=== PATIENT | male | born 1960 | race Caucasian/White ===

== ENCOUNTER → 2021-06-07 | Outpatient (CLI) | payer OTHER, MEDICARE ==
[~2021-06-07] MED LIST: DULO60CA58 PO; FLAX100032 PO; HYDR8TAB PO; LEVO100T4 PO; LEVO500T69 PO; LUBI24CA PO; MODA200T34 PO; NAPR-689 PO; OMEG-105 PO; OXYM40TA12 PO; PRED10TA PO; PREG100C22 PO; PROP20TA5 PO; SENN1TAB76 PO; TIAG4TAB PO; TIZA4CAP6 PO; VITA-235 PO
== END ==
LOC: WOUNDCARE 08:50
PROVIDERS: ATTEND Surgery
DX: S81.811A Laceration without foreign body, right lower leg, initial encounter (principal); L97.212 Non-pressure chronic ulcer of right calf with fat layer exposed; T24.331A Burn of third degree of right lower leg, initial encounter; Z89.612 Acquired absence of left leg above knee
CPT/HCPCS: 11042; A6197; G0463

== ENCOUNTER → 2021-06-07 | Outpatient (CLI) | payer OTHER, MEDICARE ==
[2021-06-07 11:22] LABS: BASOPHILS # (AUTO) 0.1 10^3/uL (0.0-0.1); BASOPHILS % (AUTO) 1 % (0-10); EOSINOPHILS # (AUTO) 0.1 10^3/uL (0.0-0.3); EOSINOPHILS % (AUTO) 2 % (0-10); HEMATOCRIT 44 % (40-54); HEMOGLOBIN 14.4 g/dL (13.3-17.7); LYMPHOCYTES # (AUTO) 0.7 10^3/uL (1.0-4.0); LYMPHOCYTES % (AUTO) 13 % (12-44); MEAN CORPUSCULAR HEMOGLOBIN 30 pg (25-34); MEAN CORPUSCULAR HGB CONC 33 g/dL (32-36); MEAN CORPUSCULAR VOLUME 92 fL (80-99); MEAN PLATELET VOLUME 10.3 fL (9.0-12.2); MONOCYTES # (AUTO) 0.7 10^3/uL (0.0-1.0); MONOCYTES % (AUTO) 13 % (0-12); NEUTROPHILS # (AUTO) 3.9 10^3/uL (1.8-7.8); NEUTROPHILS % (AUTO) 71 % (42-75); PLATELET COUNT 191 10^3/uL (130-400); WHITE BLOOD COUNT 5.6 10^3/uL (4.3-11.0)
[2021-06-07 11:32] LABS: ALANINE AMINOTRANSFERASE 236 U/L (0-55); ALBUMIN 3.9 GM/DL (3.2-4.5); ALKALINE PHOSPHATASE 228 U/L (40-136); BILIRUBIN,TOTAL 0.7 MG/DL (0.1-1.0); BUN/CREATININE RATIO 11; CALCIUM 10.1 MG/DL (8.5-10.1); CARBON DIOXIDE 30 MMOL/L (21-32); CHLORIDE 99 MMOL/L (98-107); CREATININE SERUM 0.83 MG/DL (0.60-1.30); GFR ESTIMATED > 60; GLUCOSE 113 MG/DL (70-105); SODIUM 137 MMOL/L (135-145); TOTAL PROTEIN 7.2 GM/DL (6.4-8.2)
[2021-06-07 11:53] LABS: ERYTHROCYTE SEDIMENTATION RATE 49 MM/HR (0-30)
== END ==
LOC: LAB 10:29
PROVIDERS: ATTEND Surgery
DX: S81.811A Laceration without foreign body, right lower leg, initial encounter (principal); L97.212 Non-pressure chronic ulcer of right calf with fat layer exposed; T24.331A Burn of third degree of right lower leg, initial encounter; Z89.612 Acquired absence of left leg above knee
CPT/HCPCS: 36415; 80053; 85025; 85652; 86141

== ENCOUNTER → 2021-06-13 | Outpatient (CLI) | payer OTHER, MEDICARE | LOC: WOUNDCARE 09:19 | PROVIDERS: ATTEND Surgery | DX: I87.331 Chronic venous hypertension (idiopathic) with ulcer and inflammation of right lower extremity (principal); L97.212 Non-pressure chronic ulcer of right calf with fat layer exposed; S81.811A Laceration without foreign body, right lower leg, initial encounter; T24.331A Burn of third degree of right lower leg, initial encounter; I96 Gangrene, not elsewhere classified; Z89.612 Acquired absence of left leg above knee | CPT/HCPCS: 11042; G0463 ==

== ENCOUNTER → 2021-06-20 | Outpatient (CLI) | payer OTHER, MEDICARE | LOC: WOUNDCARE 08:08 | PROVIDERS: ATTEND Surgery | DX: I87.331 Chronic venous hypertension (idiopathic) with ulcer and inflammation of right lower extremity (principal); I96 Gangrene, not elsewhere classified; L97.212 Non-pressure chronic ulcer of right calf with fat layer exposed; S81.811A Laceration without foreign body, right lower leg, initial encounter; T24.331A Burn of third degree of right lower leg, initial encounter; Z89.612 Acquired absence of left leg above knee | CPT/HCPCS: 29581; G0463 ==

== ENCOUNTER → 2021-06-23 | Outpatient (CLI) | payer OTHER, MEDICARE | LOC: WOUNDCARE 11:25 | PROVIDERS: ATTEND Surgery | DX: S81.801A Unspecified open wound, right lower leg, initial encounter (principal); L97.912 Non-pressure chronic ulcer of unspecified part of right lower leg with fat layer exposed | CPT/HCPCS: 29581 ==

== ENCOUNTER → 2021-06-27 | Outpatient (CLI) | payer OTHER, MEDICARE | LOC: WOUNDCARE 08:02 | PROVIDERS: ATTEND Surgery | DX: I87.331 Chronic venous hypertension (idiopathic) with ulcer and inflammation of right lower extremity (principal); L97.212 Non-pressure chronic ulcer of right calf with fat layer exposed; S81.811A Laceration without foreign body, right lower leg, initial encounter; T24.331A Burn of third degree of right lower leg, initial encounter; I96 Gangrene, not elsewhere classified; Z89.611 Acquired absence of right leg above knee | CPT/HCPCS: 29581; G0463 ==

== ENCOUNTER → 2021-06-30 | Outpatient (CLI) | payer OTHER, MEDICARE | LOC: WOUNDCARE 10:24 | PROVIDERS: ATTEND Surgery | DX: L97.212 Non-pressure chronic ulcer of right calf with fat layer exposed (principal) | CPT/HCPCS: 29581; G0463 ==

== ENCOUNTER → 2021-07-04 | Outpatient (CLI) | payer OTHER, MEDICARE | LOC: WOUNDCARE 08:58 | PROVIDERS: ATTEND Surgery | DX: I87.331 Chronic venous hypertension (idiopathic) with ulcer and inflammation of right lower extremity (principal); L97.212 Non-pressure chronic ulcer of right calf with fat layer exposed; S81.811A Laceration without foreign body, right lower leg, initial encounter; T24.331A Burn of third degree of right lower leg, initial encounter; I96 Gangrene, not elsewhere classified; Z89.612 Acquired absence of left leg above knee | CPT/HCPCS: 11042; A6234; G0463 ==

== ENCOUNTER → 2021-07-07 | Outpatient (CLI) | payer OTHER, MEDICARE | LOC: WOUNDCARE 10:59 | PROVIDERS: ATTEND Orthopaedic Surgery Hand Surgery | DX: I87.311 Chronic venous hypertension (idiopathic) with ulcer of right lower extremity (principal) | CPT/HCPCS: 29581; G0463 ==

== ENCOUNTER → 2021-07-11 | Outpatient (CLI) | payer OTHER, MEDICARE | LOC: WOUNDCARE 09:59 | PROVIDERS: ATTEND Surgery | DX: I87.331 Chronic venous hypertension (idiopathic) with ulcer and inflammation of right lower extremity (principal); L97.512 Non-pressure chronic ulcer of other part of right foot with fat layer exposed; S81.811A Laceration without foreign body, right lower leg, initial encounter; T24.331A Burn of third degree of right lower leg, initial encounter; I96 Gangrene, not elsewhere classified; Z89.612 Acquired absence of left leg above knee | CPT/HCPCS: 11042; G0463 ==

== ENCOUNTER → 2021-07-14 | Outpatient (CLI) | payer OTHER, MEDICARE | LOC: WOUNDCARE 08:28 | PROVIDERS: ATTEND Surgery | DX: I87.331 Chronic venous hypertension (idiopathic) with ulcer and inflammation of right lower extremity (principal) | CPT/HCPCS: 29581; A6234; G0463 ==

== ENCOUNTER → 2021-07-18 | Outpatient (CLI) | payer OTHER, MEDICARE | LOC: WOUNDCARE 08:12 | PROVIDERS: ATTEND Surgery | DX: I87.331 Chronic venous hypertension (idiopathic) with ulcer and inflammation of right lower extremity (principal); I96 Gangrene, not elsewhere classified; L97.212 Non-pressure chronic ulcer of right calf with fat layer exposed; S81.811A Laceration without foreign body, right lower leg, initial encounter; T24.331A Burn of third degree of right lower leg, initial encounter; Z89.612 Acquired absence of left leg above knee | CPT/HCPCS: 11042; A6234; G0463 ==

== ENCOUNTER → 2021-07-21 | Outpatient (CLI) | payer OTHER, MEDICARE | LOC: WOUNDCARE 11:31 | PROVIDERS: ATTEND Surgery | DX: L97.219 Non-pressure chronic ulcer of right calf with unspecified severity (principal) | CPT/HCPCS: 29581; G0463 ==

== ENCOUNTER → 2021-07-25 | Outpatient (CLI) | payer OTHER, MEDICARE | LOC: WOUNDCARE 08:19 | PROVIDERS: ATTEND Surgery | DX: T24.331A Burn of third degree of right lower leg, initial encounter (principal); I87.331 Chronic venous hypertension (idiopathic) with ulcer and inflammation of right lower extremity; L97.212 Non-pressure chronic ulcer of right calf with fat layer exposed; S81.811A Laceration without foreign body, right lower leg, initial encounter; Z89.612 Acquired absence of left leg above knee | CPT/HCPCS: 99212 ==

== ENCOUNTER → 2022-03-13 | Outpatient (CLI) | payer OTHER, MEDICARE | LOC: WOUNDCARE 13:13 | PROVIDERS: ATTEND Family Medicine | DX: T37.0X5A Adverse effect of sulfonamides, initial encounter (principal) | CPT/HCPCS: 99212 ==

== ENCOUNTER → 2022-09-13 | Outpatient (CLI) | payer OTHER, MEDICARE ==
[2022-09-13 13:26] LABS: BASOPHILS # (AUTO) 0.1 10^3/uL (0.0-0.1); BASOPHILS % (AUTO) 1 % (0-10); EOSINOPHILS # (AUTO) 0.1 10^3/uL (0.0-0.3); EOSINOPHILS % (AUTO) 1 % (0-10); HEMATOCRIT 43 % (40-54); HEMOGLOBIN 14.5 g/dL (13.3-17.7); LYMPHOCYTES # (AUTO) 0.9 10^3/uL (1.0-4.0); LYMPHOCYTES % (AUTO) 14 % (12-44); MEAN CORPUSCULAR HEMOGLOBIN 30 pg (25-34); MEAN CORPUSCULAR HGB CONC 34 g/dL (32-36); MEAN CORPUSCULAR VOLUME 88 fL (80-99); MEAN PLATELET VOLUME 10.9 fL (9.0-12.2); MONOCYTES # (AUTO) 0.4 10^3/uL (0.0-1.0); MONOCYTES % (AUTO) 6 % (0-12); NEUTROPHILS # (AUTO) 5.2 10^3/uL (1.8-7.8); NEUTROPHILS % (AUTO) 78 % (42-75); PLATELET COUNT 162 10^3/uL (130-400); WHITE BLOOD COUNT 6.7 10^3/uL (4.3-11.0)
[2022-09-13 13:57] LABS: ALBUMIN 4.1 GM/DL (3.2-4.5); BILIRUBIN,TOTAL 0.5 MG/DL (0.1-1.0); CALCIUM 9.9 MG/DL (8.5-10.1); CREATININE SERUM 0.8 MG/DL (0.60-1.30); POTASSIUM 4.2 MMOL/L (3.6-5.0)
== END ==
LOC: WOUNDCARE 12:11
PROVIDERS: ATTEND Family Medicine
DX: I87.311 Chronic venous hypertension (idiopathic) with ulcer of right lower extremity (principal); L97.212 Non-pressure chronic ulcer of right calf with fat layer exposed; I89.0 Lymphedema, not elsewhere classified; S80.821A Blister (nonthermal), right lower leg, initial encounter; E66.01 Morbid (severe) obesity due to excess calories; Z68.27 Body mass index [BMI] 27.0-27.9, adult
CPT/HCPCS: 11042; 80053; 85025; A6021; G0463; 36415

== ENCOUNTER → 2022-09-17 | Outpatient (CLI) | payer OTHER, MEDICARE | LOC: WOUNDCARE 10:28 | PROVIDERS: ATTEND Family Medicine | DX: I89.0 Lymphedema, not elsewhere classified (principal); I87.331 Chronic venous hypertension (idiopathic) with ulcer and inflammation of right lower extremity; I96 Gangrene, not elsewhere classified | CPT/HCPCS: 29581; A6021; G0463 ==

== ENCOUNTER → 2022-09-21 | Outpatient (CLI) | payer OTHER, MEDICARE | LOC: WOUNDCARE 10:22 | PROVIDERS: ATTEND Family Medicine | DX: I87.311 Chronic venous hypertension (idiopathic) with ulcer of right lower extremity (principal); I96 Gangrene, not elsewhere classified; L97.212 Non-pressure chronic ulcer of right calf with fat layer exposed; I89.0 Lymphedema, not elsewhere classified; E66.01 Morbid (severe) obesity due to excess calories; Z68.27 Body mass index [BMI] 27.0-27.9, adult | CPT/HCPCS: 11042; A6021; G0463 ==

== ENCOUNTER → 2022-09-28 | Outpatient (CLI) | payer OTHER, MEDICARE | LOC: WOUNDCARE 10:18 | PROVIDERS: ATTEND Family Medicine | DX: I87.311 Chronic venous hypertension (idiopathic) with ulcer of right lower extremity (principal); I96 Gangrene, not elsewhere classified; L97.212 Non-pressure chronic ulcer of right calf with fat layer exposed; I89.0 Lymphedema, not elsewhere classified; E66.01 Morbid (severe) obesity due to excess calories; Z68.27 Body mass index [BMI] 27.0-27.9, adult | CPT/HCPCS: 11042; A6021; G0463 ==

== ENCOUNTER → 2022-10-05 | Outpatient (CLI) | payer OTHER, MEDICARE | LOC: WOUNDCARE 09:58 | PROVIDERS: ATTEND Family Medicine | DX: L97.212 Non-pressure chronic ulcer of right calf with fat layer exposed (principal); I87.311 Chronic venous hypertension (idiopathic) with ulcer of right lower extremity; I89.0 Lymphedema, not elsewhere classified; E66.01 Morbid (severe) obesity due to excess calories | CPT/HCPCS: 99212 ==

== ENCOUNTER → 2023-03-04 | Outpatient (CLI) | payer OTHER, MEDICARE | LOC: WOUNDCARE 08:08 | PROVIDERS: ATTEND Family Medicine | DX: I96 Gangrene, not elsewhere classified (principal); L97.212 Non-pressure chronic ulcer of right calf with fat layer exposed; S61.412A Laceration without foreign body of left hand, initial encounter; I89.0 Lymphedema, not elsewhere classified; X58.XXXA Exposure to other specified factors, initial encounter | CPT/HCPCS: 11042; 87070; 87205; A6021; A6212; G0463 ==

== ENCOUNTER → 2023-03-11 | Outpatient (CLI) | payer OTHER, MEDICARE | LOC: WOUNDCARE 08:49 | PROVIDERS: ATTEND Family Medicine | DX: S61.412A Laceration without foreign body of left hand, initial encounter (principal); L97.212 Non-pressure chronic ulcer of right calf with fat layer exposed; I89.0 Lymphedema, not elsewhere classified; Y82.8 Other medical devices associated with adverse incidents | CPT/HCPCS: 11042; A6021; A6212; G0463 ==

== ENCOUNTER → 2023-03-18 | Outpatient (CLI) | payer OTHER, MEDICARE | LOC: WOUNDCARE 09:17 | PROVIDERS: ATTEND Family Medicine | DX: L97.212 Non-pressure chronic ulcer of right calf with fat layer exposed (principal); I89.0 Lymphedema, not elsewhere classified; Y82.8 Other medical devices associated with adverse incidents | CPT/HCPCS: 29581; G0463 ==

== ENCOUNTER → 2023-03-25 | Outpatient (CLI) | payer OTHER, MEDICARE | LOC: WOUNDCARE 09:03 | PROVIDERS: ATTEND Family Medicine | DX: Z53.9 Procedure and treatment not carried out, unspecified reason (principal) | CPT/HCPCS: 99212 ==

== ENCOUNTER → 2023-08-21 | Outpatient (CLI) | payer OTHER, MEDICARE ==
[2023-08-21 14:46] LABS: BASOPHILS # (AUTO) 0.1 10^3/uL (0.0-0.1); BASOPHILS % (AUTO) 2 % (0-10); EOSINOPHILS # (AUTO) 0.2 10^3/uL (0.0-0.3); EOSINOPHILS % (AUTO) 4 % (0-10); HEMATOCRIT 42 % (40-54); HEMOGLOBIN 14.5 g/dL (13.3-17.7); LYMPHOCYTES # (AUTO) 1.4 10^3/uL (1.0-4.0); LYMPHOCYTES % (AUTO) 28 % (12-44); MEAN CORPUSCULAR HEMOGLOBIN 30 pg (25-34); MEAN CORPUSCULAR HGB CONC 34 g/dL (32-36); MEAN CORPUSCULAR VOLUME 88 fL (80-99); MEAN PLATELET VOLUME 10.9 fL (9.0-12.2); MONOCYTES # (AUTO) 0.5 10^3/uL (0.0-1.0); MONOCYTES % (AUTO) 10 % (0-12); NEUTROPHILS # (AUTO) 2.9 10^3/uL (1.8-7.8); NEUTROPHILS % (AUTO) 56 % (42-75); PLATELET COUNT 165 10^3/uL (130-400); WHITE BLOOD COUNT 5.1 10^3/uL (4.3-11.0)
[2023-08-21 15:01] LABS: ALBUMIN 4.1 GM/DL (3.2-4.5); POTASSIUM 4.3 MMOL/L (3.6-5.0)
[2023-08-21 15:02] LABS: CALCIUM 9.7 MG/DL (8.5-10.1)
[2023-08-21 15:04] LABS: TOTAL PROTEIN 6.8 GM/DL (6.4-8.2)
[2023-08-21 15:05] LABS: BILIRUBIN,TOTAL 0.5 MG/DL (0.1-1.0)
[2023-08-21 15:07] LABS: CREATININE SERUM 0.88 MG/DL (0.60-1.30)
== END ==
LOC: WOUNDCARE 13:47
PROVIDERS: ATTEND Family Medicine
DX: I96 Gangrene, not elsewhere classified (principal); L97.212 Non-pressure chronic ulcer of right calf with fat layer exposed; T86.828 Other complications of skin graft (allograft) (autograft); I89.0 Lymphedema, not elsewhere classified; Y82.8 Other medical devices associated with adverse incidents
CPT/HCPCS: 11042; 80053; 85025; G0463; 36415

== ENCOUNTER → 2023-09-06 | Outpatient (CLI) | payer OTHER, MEDICARE | LOC: WOUNDCARE 09:30 | PROVIDERS: ATTEND Family Medicine | DX: I96 Gangrene, not elsewhere classified (principal); L97.212 Non-pressure chronic ulcer of right calf with fat layer exposed; I89.0 Lymphedema, not elsewhere classified; I87.311 Chronic venous hypertension (idiopathic) with ulcer of right lower extremity; T86.828 Other complications of skin graft (allograft) (autograft); Y82.8 Other medical devices associated with adverse incidents | CPT/HCPCS: 11042; A6209; A6212; G0463 ==

== ENCOUNTER → 2023-09-09 | Outpatient (CLI) | payer OTHER, MEDICARE | LOC: WOUNDCARE 09:29 | PROVIDERS: ATTEND Family Medicine | DX: L97.219 Non-pressure chronic ulcer of right calf with unspecified severity (principal) | CPT/HCPCS: 29581; A6021; A6209; A6212; G0463 ==

== ENCOUNTER → 2023-09-13 | Outpatient (CLI) | payer OTHER, MEDICARE | LOC: WOUNDCARE 09:08 | PROVIDERS: ATTEND Family Medicine | DX: I87.311 Chronic venous hypertension (idiopathic) with ulcer of right lower extremity (principal); L97.222 Non-pressure chronic ulcer of left calf with fat layer exposed; I89.0 Lymphedema, not elsewhere classified; T86.828 Other complications of skin graft (allograft) (autograft); Y82.8 Other medical devices associated with adverse incidents | CPT/HCPCS: 29581; A6021; A6209; A6212; G0463 ==

== ENCOUNTER → 2023-09-16 | Outpatient (CLI) | payer OTHER, MEDICARE | LOC: WOUNDCARE 09:42 | PROVIDERS: ATTEND Family Medicine | DX: L97.219 Non-pressure chronic ulcer of right calf with unspecified severity (principal); M81.0 Age-related osteoporosis without current pathological fracture | CPT/HCPCS: 29581; A6209; A6212; G0463 ==

== ENCOUNTER → 2023-09-20 | Outpatient (CLI) | payer OTHER, MEDICARE | LOC: WOUNDCARE 09:38 | PROVIDERS: ATTEND Family Medicine | DX: L97.212 Non-pressure chronic ulcer of right calf with fat layer exposed (principal); T86.828 Other complications of skin graft (allograft) (autograft); I89.0 Lymphedema, not elsewhere classified; Y82.8 Other medical devices associated with adverse incidents; I87.311 Chronic venous hypertension (idiopathic) with ulcer of right lower extremity | CPT/HCPCS: 29581; A6209; A6212; G0463 ==

== ENCOUNTER → 2023-09-25 | Outpatient (CLI) | payer OTHER, MEDICARE | LOC: WOUNDCARE 08:58 | PROVIDERS: ATTEND Family Medicine | DX: L97.212 Non-pressure chronic ulcer of right calf with fat layer exposed (principal); T86.828 Other complications of skin graft (allograft) (autograft); I89.0 Lymphedema, not elsewhere classified; I87.311 Chronic venous hypertension (idiopathic) with ulcer of right lower extremity | CPT/HCPCS: 99212 ==